=== PATIENT | male | born 1950 | race Caucasian/White ===

== ENCOUNTER 2023-02-12 22:06 | Emergency (ER) | payer OTHER, MEDICAID ==
[~2023-02-12] VITALS: Ht 175.3 cm; Wt 88.5 kg
[2023-02-12 22:15] VITALS: BP 134/67; PULSE 72; RESP 16; TEMP 98.3; O2SAT 97
[2023-02-12] MEDS ORDERED: NACL 0.9% 1,000 ML IV ONE (22:45)
[2023-02-12 23:35] LABS: HEMATOCRIT 34.9 % (36-52); HEMOGLOBIN 12.1 g/dL (12.0-18.0); MEAN CORPUSCULAR HEMOGLOBIN 30 pg (27-31); MEAN CORPUSCULAR HGB CONC 35 g/dL (33-37); MEAN CORPUSCULAR VOLUME 85.4 fL (80-94); PLATELET COUNT (AUTO) 88 K/uL (140-450); RED BLOOD CELL COUNT(AUTO) 4.08 MIL/uL (4.20-6.10); WHITE BLOOD COUNT (AUTO) 4.7 K/uL (4.8-10.8)
[2023-02-13] LABS: MONOCYTES % (MANUAL) 11 % (5-12)
[2023-02-13 00:01] LABS: ALANINE AMINOTRANSFERASE 25 U/L (12-78); ALBUMIN 3.3 g/dL (3.4-5.0); ALKALINE PHOSPHATASE 58 U/L (50-136); ANION GAP 10.2 (8-16); ASPARTATE AMINOTRANSFERASE 21 U/L (15-37); CALCIUM 8.5 mg/dL (8.5-10.1); CARBON DIOXIDE 27.3 mmol/L (21-32); CHLORIDE 102 mmol/L (98-107); CREATININE 1.3 mg/dL (0.6-1.3); EOSINOPHILS % (MANUAL) 4 % (0-4); GLUCOSE 107 mg/dL (74-106); LACTIC ACID 0.5 mmol/L (0.4-2.0); LYMPHOCYTES % (MANUAL) 26 % (20-46); POTASSIUM 3.5 mmol/L (3.5-5.1); SODIUM SERUM 136 mmol/L (136-145); TOTAL BILIRUBIN 0.3 mg/dL (0.0-1.0); TOTAL PROTEIN, SERUM 6.2 g/dL (6.4-8.2); UREA NITROGEN, BLOOD 13 mg/dL (7-18)
[2023-02-13 00:24] LABS: INR 0.93 (0.8-1.2); PROTHROMBIN TIME 9.8 secs (10.8-13.4)
[2023-02-13 00:43] LABS: APPEARANCE,URINE CLEAR (CLEAR); BILIRUBIN,URINE NEGATIVE (NEGATIVE); BLOOD, URINE TRACE-I (NEGATIVE); COLOR,URINE YELLOW (YELLOW); LEUKOCYTE ESTERASE ,URINE NEGATIVE (NEGATIVE); NITRITE, URINE NEGATIVE (NEGATIVE); PH,URINE 6.5 (5.0-9.0); PROTEIN,URINE NEGATIVE (NEGATIVE); UGLUCOSE NEGATIVE (NEGATIVE); UROBILINOGEN,URINE 0.2 EU/dL (0.2 - 1)
[2023-02-13 00:58] LABS: BACTERIA,URINE OCCASSIONAL /HPF (None Seen); RBC,URINE NONE SEEN /HPF (0-5); SQUAMOUS EPITHELIAL CELL,UR 0-3 (FEW) /LPF (0-3 (FEW)); WBC,URINE NONE SEEN /HPF (0-5)
[2023-02-13 01:14] LABS: FLU A ANTIGEN negative (NEGATIVE); FLU B ANTIGEN NEGATIVE (NEGATIVE)
[2023-02-13] MEDS ORDERED: NIRM1TAB PO (02:43)
[2023-02-13 11:54] VITALS: BP 130/62; PULSE 71; RESP 17; TEMP 97.4; O2SAT 98
== END 2023-02-13 11:54 | disposition home or self-care (01) ==
LOC: MED 22:06
DX: U07.1 COVID-19 (principal); Z79.899 Other long term (current) drug therapy
CPT/HCPCS: 36415; 71045; 80053; 81001; 83605; 83880; 84484; 85025; 85610; 87040; 87086; 87426; 87804; 93005; 96360; 99285; J7030; Q0092